=== PATIENT | female | born 1990 | race Asian ===

== ENCOUNTER 2017-04-09 11:06 | Emergency (ER) | payer BC ==
[~2017-04-09] VITALS: Ht 160 cm; Wt 63.5 kg
[2017-04-09 11:15] VITALS: TEMP 98.3
[2017-04-09 12:01] LABS: PLATELET COUNT 250 K/uL (152-353)
[2017-04-09 12:18] LABS: POTASSIUM 3.6 mmol/L (3.6-5.2); SODIUM 144 mmol/L (136-145)
[2017-04-09 15:41] VITALS: BP 117/76
== END 2017-04-09 15:41 | disposition home or self-care (01) ==
LOC: ED 11:06
DX: R10.9 Unspecified abdominal pain (principal); K52.9 Noninfective gastroenteritis and colitis, unspecified; K42.9 Umbilical hernia without obstruction or gangrene
CPT/HCPCS: 80053; 82150; 83690; 85027; 96361; 96374; 99283; J2405; Q9963

== ENCOUNTER 2017-11-12 12:03 | Emergency (ER) | payer BC ==
[~2017-11-12] VITALS: Ht 160 cm; Wt 64.4 kg
[2017-11-12 12:24] VITALS: BP 147/86; TEMP 98.9
== END 2017-11-12 14:02 | disposition home or self-care (01) ==
LOC: ED 12:03
DX: R11.2 Nausea with vomiting, unspecified (principal)
CPT/HCPCS: 99281

== ENCOUNTER 2018-01-16 20:53 | Emergency (ER) | payer BC ==
[~2018-01-16] VITALS: Ht 160 cm; Wt 63.7 kg
[2018-01-16 22:31] LABS: PLATELET COUNT 211 K/uL (152-353)
[2018-01-17 00:01] VITALS: BP 118/75; TEMP 98.2
== END 2018-01-17 00:21 | disposition home or self-care (01) ==
LOC: ED 20:53
DX: N73.9 Female pelvic inflammatory disease, unspecified (principal)
CPT/HCPCS: 36415; 81000; 81025; 85027; 96372; 99283; J1885